=== PATIENT | male | born 1955 | race Caucasian/White ===

== ENCOUNTER 2021-11-07 13:19 | Outpatient (CLI) | payer MEDICARE, BC | END 2021-11-07 23:59 | disposition home or self-care (01) | LOC: EDSEX 13:19 → RAD 13:19 | PROVIDERS: ATTEND Family Medicine | DX: R13.14 Dysphagia, pharyngoesophageal phase (principal); K21.9 Gastro-esophageal reflux disease without esophagitis | CPT/HCPCS: 74230 ==